=== PATIENT | female | born 1955 | race Caucasian/White ===

== ENCOUNTER 2020-08-21 13:38 | Inpatient (IN) | payer OTHER, SELFPAY ==
[~2020-08-21] VITALS: Ht 160 cm; Wt 73.2 kg
[2020-08-21 13:47] VITALS: Ht 160 cm; Wt 73.2 kg
--- NOTE | 2020-08-21 14:05 | NUR ---
PT BIB [facility] C/O SOB X 2 DAYS. PT STS "I TESTED + FOR COVID 1 WEEK AGO. SOB WROSE THE LAST 2 DAYS." PT AA/OX4. RESP EVEN AND UNLABORED. PT SPEAKING FULL, CLEAR AND COMPLETE SENTENCES. PT PLACED IN GOWN AND ON FULL CM. PT O2 SAT 88%RA. PT PLACED ON 4L O2 VIA NC. IV PLACED IN RAC. WILL CONT TO MONITOR
[2020-08-21 14:54] LABS: BASOPHIL % 0.1 % (0-2); PLATELET COUNT 192 x10^3mcL (130-400); RED CELL DISTRIBUTION WIDTH 14.4 % (11.5-14.5)
[2020-08-21 14:59] LABS: CALCIUM 8.9 mg/dL (8.5-10.1); CARBON DIOXIDE 22.6 mmol/L (21-32); CHLORIDE SERUM 94 mmol/L (98-107); CREATININE SERUM 0.7 mg/dL (0.6-1.0); GFR1 > 60 mL/min; GLUCOSE SERUM 90 mg/dL (74-106); POTASSIUM SERUM 3.6 mmol/L (3.5-5.1); SODIUM SERUM 131 mmol/L (136-145)
[2020-08-21 15:09] LABS: ALKALINE PHOSPHATASE 79 U/L (46-116); ALT/SGPT 20 U/L (14-59); AST/SGOT 39 U/L (15-37); BILIRUBIN TOTAL 0.4 mg/dL (0.20-1.00); LACTIC DEHYDROGENASE (LDH) 563 U/L (100-190); TOTAL PROTEIN, SERUM 7.7 g/dL (6.4-8.2)
[2020-08-21 15:11] LABS: ALBUMIN 3.1 g/dL (3.4-5.0)
[2020-08-21 15:23] LABS: C REACTIVE PROTEIN 44.4 mg/dL (<=0.9)
[2020-08-21] MEDS ORDERED: PAXIL10 MG/5 ML PO (15:59)
[2020-08-21] MEDS ORDERED: LEVOTHYROXINE (16:01)
[2020-08-21] MEDS ORDERED: BUPROPION300 M1 PO (16:01)
--- NOTE | 2020-08-21 17:14 | NUR ---
REPORT CALLED TO CESILIA LANDA TO ASSUME CARE OF PT.
--- NOTE | 2020-08-21 17:48 | NUR ---
RECEIVED PATIENT FROM ER LAYING IN BED, HOB ELEVATED MILD RESP DISTRESS NOTED, INTRODUCE MYSELF TO PT, SOB AND LABORED BREATHING NOTED, OBSERVED RR 32 BREATHS/MIN USING ABDOMINAL CAVITY. PT ANSWER QUESTIONS W/O TAKING A BREATHER. DENIED PAIN AT THIS TIME. CESILIA RN AT BEDSIDE CONNECT IV TO PUMP TO INFUSING ABX CAME WITH PT. IV SITE RAC INTACT/PATENT, FLUSH FREELY NO INFILTRATION NOTED. PLACE T51 ST WITH HR 113 NOTED. DISCUSS POC WITH PATIENT, CESILIA RN RESUME CARE. CALL LIGHT WITHIN REACH.
[2020-08-21 17:56] VITALS: BP 147/86
--- NOTE | 2020-08-21 18:27 | NUR ---
SPOKE WITH DR. BLISS VIA TELEPHONE, OBTAINED ORDER FOR CONTINUOUS PULSE OX AND ALBUTEROL INH. WILL INPUT ORDERS ACCORDINGLY. PT AMBULATED TO BR, GEN WEAKNESS NOTED. TELE#51 SR, BREATHING EVEN/LABORED ON 4 L NC. PT REPORTS NO PAIN AT THIS TIME. IV TO RAC PATENT, INFUSING AZITHROMYCIN AT 125ML/HR. ALL NEEDS MET. WILL ENDORSE CARE TO ANODISER NURSE.
--- NOTE | 2020-08-21 19:50 | NUR ---
RECEIVED PT IN BED RESTING AWAKE A/O X 4 ABLE TO FOLLOW COMMANDS, ABLE TO MAKE NEEDS KNOWN, SPEECH CLR, NO ZHANG OR DIZZINESS. LUNGS SOUND DIMINISHED BILATERALLY, RESP IS EVEN AND SLIGHTLY LABORED, SOB ON EXERTION OBSERVED, PT ON 4L OXYMIZER WITH SPO2 96%. RADIAL AND PEDAL PULSES PRESENT, NO EDEMA NOTED. ON TELE 51, NO C/O CHEST PAIN AT THIS TIME. ABD ROUND AND SOFT, ACTIVE BS PRESENT X4, 0% DINNER PER PT SHE HAS NO APPETITE, NO C/O NVD. VOID FREELY NO DISCOMFORT OR PAIN REPORTED. SKIN IS WARM AND DRY, IV SITE TO THE RAC, PATENT AND FLUSHING WELL. BED TO LOWEST POSITION, CALL LIG WITHIN REACH, WILL CONT TO MONITOR FOR CHANGES IN CONDTION.
[2020-08-21 22:58] VITALS: BP 121/61
[2020-08-22 06:17] VITALS: BP 125/78
--- NOTE | 2020-08-22 06:41 | NUR ---
PT REMAINED IN BED AWAKE RESTING COMFORTABLY. NO C/O PAIN, NO ACUTE DISTRESS NOTED. RESP IS EVEN AND SLIGHTLY LABORED, SOB UPON EXERTION OBSERVED, PT ON 4L OXYMIZER SPO2 96%. NEEDS ATTENDED AND MET, FREQUENT VISUAL MONITORING RENDERED. BED TO LOWEST POSITION, CALL LIGHT WITHIN REACH, WILL CONT TO MONITOR AND ENDORSE TO NEXT SHIFT NURSE.
[2020-08-22 06:51] LABS: PLATELET COUNT 213 x10^3mcL (130-400); RED CELL DISTRIBUTION WIDTH 14.4 % (11.5-14.5)
--- NOTE | 2020-08-22 07:25 | NUR ---
RECEIVED PT FROM LINUX SYSTEMS ENGINEER. ASSESSED AND WILL DOCUMENT. STABLE. DENIES ANY PAIN. NO SOB NOTED. SAFTEY PRECAUTIONS ARE IN PLACE. WILL MONITOR.
[2020-08-22 07:39] LABS: ALKALINE PHOSPHATASE 87 U/L (46-116); ALT/SGPT 29 U/L (14-59); AST/SGOT 44 U/L (15-37); BILIRUBIN TOTAL 0.39 mg/dL (0.20-1.00); CALCIUM 9.3 mg/dL (8.5-10.1); CARBON DIOXIDE 21.6 mmol/L (21-32); CHLORIDE SERUM 101 mmol/L (98-107); CREATININE SERUM 0.7 mg/dL (0.6-1.0); GFR1 > 60 mL/min; GLUCOSE SERUM 105 mg/dL (74-106); POTASSIUM SERUM 4.6 mmol/L (3.5-5.1); SODIUM SERUM 136 mmol/L (136-145); TOTAL PROTEIN, SERUM 7.8 g/dL (6.4-8.2)
[2020-08-22 07:40] LABS: ALBUMIN 2.7 g/dL (3.4-5.0)
[2020-08-22 08:05] LABS: BASOPHIL % 0 % (0-2)
[2020-08-22 08:56] VITALS: BP 153/85
[2020-08-22] MEDS ORDERED: PLAQUENIL200 MG PO (10:39)
--- NOTE | 2020-08-22 12:40 | NUR ---
PT GOT UP TO USE RESTROOM, TOOK O2 OFF. DESATTING TO 86% AND HR IS >140, DENIES CHEST PAIN. MILD SOB ON EXERTION. INSTRUCTED PT TO USE BSC BUT PT INSISTING SHE WANT TO USE THE RESTROOM, SHE SAID SHE IS FINE. STAYED WITH PT UNTIL SHE CAME BACK TO BED. PUT O2 BACK ON 4L OXYMIZER. GAVE COMFORTABLE POSITION. WILL CONTINUE MONITOR.
[2020-08-22 13:01] VITALS: BP 140/86
--- NOTE | 2020-08-22 13:15 | NUR ---
PT RESTING IN BED COMFORTABLY. NO SOB NOTED. 96% IN 4L O2 OXYMIZER. HR 101. DENIES ANY PAIN. PT C/O SORE THROAT, INFORMED , HE SAID TO ORDER THROAT LOZENGELS. PT IS STABLE. WILL CONTINUE MONITOR.
--- NOTE | 2020-08-22 16:00 | NUR ---
PT RESTING IN BED COMFORTABLY, NO SOB NOTED THIS TIME. STABLE.
[2020-08-22 17:02] VITALS: BP 142/94
--- NOTE | 2020-08-22 19:11 | NUR ---
PT REMAINS STABLE. SOB ON EXERTION NOTED. SPO2 96% ON OXIMIZER 4L. INFORMED RT TO GIVE BREATHING TX. PT C/O ACID REFLUX. CALLED AND RECEIVED ORDER FOR PRILOSEC PO ACBK.GAVE REPORT TO PLASTER TENDER NURSE.
[2020-08-22 19:48] VITALS: BP 158/87
--- NOTE | 2020-08-22 19:55 | NUR ---
RECEIVED PT STANDING BY THE BED. SHE IS ALERT,ORIENTED X4. LUNG SOUNDS DIM. ON OXIMIZER AT 4L . PT W/ MILD SOB ON EXERTION. SHE HAS NO C/O PAIN AT THIS TIME. W/ IV ABX INFUSING VIA RTAC. CALL LIGHT W/IN REACH.
[2020-08-23] VITALS (9 sets, daily range): BP systolic 113–149; BP diastolic 65–113
--- NOTE | 2020-08-23 06:26 | NUR ---
PT SLEPT IN LONG INTERVALS. PT REMAINS ON O2 AT 4L VIA OXIMIZER. SHE HAS MILD SOB ON EXERTION. SHE IS ABLE TO AMBULATE INDEPENDENTLY. PT SIGNED CONSENT FOR CONVALESCENT PLASMA TRANSFUSION. SHE WAS MEDICATED FOR HEADACHE X1. ALL NEEDS ATTENDED TO.
--- NOTE | 2020-08-23 07:30 | NUR ---
RECEIVED PT FROM RN PEDIATRIC ICU. ASSESSED AND WILL DOCUMENT. NO SOB THIS TIME. SOB ON EXERTION. DENIES ANY PAIN. SAFTEY PRECAUTIONS ARE IN PLACE. WILL MONITOR.
[2020-08-23 08:10] LABS: ALKALINE PHOSPHATASE 100 U/L (46-116); ALT/SGPT 38 U/L (14-59); AST/SGOT 42 U/L (15-37); BILIRUBIN TOTAL 0.28 mg/dL (0.20-1.00); CARBON DIOXIDE 24.9 mmol/L (21-32); CHLORIDE SERUM 101 mmol/L (98-107); CREATININE SERUM 0.6 mg/dL (0.6-1.0); GFR1 > 60 mL/min; GLUCOSE SERUM 120 mg/dL (74-106); POTASSIUM SERUM 3.6 mmol/L (3.5-5.1); SODIUM SERUM 136 mmol/L (136-145); TOTAL PROTEIN, SERUM 7.4 g/dL (6.4-8.2)
[2020-08-23 08:12] LABS: ALBUMIN 2.6 g/dL (3.4-5.0)
[2020-08-23 08:19] LABS: BASOPHIL % 0 % (0-2); PLATELET COUNT 258 x10^3mcL (130-400); RED CELL DISTRIBUTION WIDTH 14.4 % (11.5-14.5)
--- NOTE | 2020-08-23 08:40 | NUR ---
PT GOT UP TO USE RESTROOM, HR UP TO 140, MILD SOB ON EXERTION, SPO2 95%. ASSISTED PT BACK TO BED SAFLEY, HR BACK TO NORMAL IN 90'S. STABLE. WILL CONTINUE MONITOR.
--- NOTE | 2020-08-23 09:50 | NUR ---
PT C/O ZHANG AND BACK PAIN,12/05. ADMINISTERED TYLENOL PO ORDERED. WILL MONITOR. NO SOB NOTED.
--- NOTE | 2020-08-23 10:50 | NUR ---
DENIES ZHANG AND BACK PAIN THIS TIME. STABLE.
--- NOTE | 2020-08-23 11:00 | NUR ---
POOR APPETITE, ENCOURAGED PT TO EAT. PT AGREED TO EAT LITTILE MORE. STABLE. NO SOB NOTED.
--- NOTE | 2020-08-23 14:00 | NUR ---
PT IS SLEEPING THIS TIME. STABLE. NO SOB NOTED.
--- NOTE | 2020-08-23 18:10 | NUR ---
PT C/O ZHANG AND BACK PAIN,12/05. ADMINISTERED TYLENOL PO ORDERED. WILL MONITOR. NO SOB NOTED.
--- NOTE | 2020-08-23 19:10 | NUR ---
PT REMAINS STABLE. DENIES ZHANG AND BACK PAIN THIS TIME. NO SOB NOTED. GAVE REPORT TO FLIGHT ATTENDANT INFLIGHT SERVICES NURSE.
--- NOTE | 2020-08-23 19:20 | NUR ---
RECEIVED PT FROM DAY SHIFT RN.PT RESTING IN BED. PT AA&OX4. PT ON TELE#51, ST 108, DENIES CHEST PAIN OR DISTRESS. PT ON 4L O2 W/OXIMIZER. LUNG SOUNDS DIMINISHED BILATERAL. NO EDEMA NOTED, PULSES REGULAR. GENERALIZED WEAKNESS NOTED. IV SITE INTACT AND PATENT, IV FLUID RUNNING WELL. PT STATES SHE FEEL MUCH BETTER NOW AFTER THE PAIN MEDICATION GIVEN. INSTRUCTED PT TO USE CALL LIGHT AND PHONE, BED IN LOW POSITION. WILL CONTINUE TO CALL PT.
--- NOTE | 2020-08-23 23:00 | NUR ---
2210: VERIFIED TRANSFUSION WITH ANOTHER NURSE. STARTING TO GIVE TRANSFUSTION. VITAL SIGNS :T=97.9,HR=91,DI=865/65, RR=20, Q6CSE=74%. STARTING WITH RATE W/60ML/HR. BEDSIDE MONITORING. 2225: VITAL SIGNS: T=97.1, HR=80, WQ=374/83, RR=19, L4JKG=12%. NO ADVERSE REACTION NOTED AT THIS TIME. INFUSING WELL AND PT TOLERATED WELL. IV TRANSFUSION INFUSING RATE CHAGE TO 250ML/HR. 2255: VITAL SIGNS: T=97.1, HR=84, FI=631/83, RR=19, T6PNC=48%. BLOOD CONVALESCENT PLAME TRANSFUTION DONE. NO ADVERSE REACTION NOTED. PT TOLERATED WELL. NO DISTRESS NOTED. NO CHEST PAIN. PT ON OXYGEN 4L W/OXIMIZER. INSTRUCTED PT TO CALL FOR ANY ASSISTANCE OR ANY ACUTE CHANGE WITH CONDITIONS. WILL CONTINUE TO MONITOR PT.
--- NOTE | 2020-08-24 01:00 | NUR ---
RECHECKED ON PT. PT RESTING IN BED. ON O2 4L/OXIMIZER. NO S/S OF DISTRESS NOTED. WILL CONTINUE TO MONITOR PT.
[2020-08-24 05:22] VITALS: BP 120/67
[2020-08-24 06:48] LABS: PLATELET COUNT 255 x10^3mcL (130-400); RED CELL DISTRIBUTION WIDTH 14.3 % (11.5-14.5)
--- NOTE | 2020-08-24 06:57 | NUR ---
PT RESTING WELL DURING SHIFT. NO S/S OF ACUTE CHANGES NOTED. PT DENIES CHEST PAIN OR DISCOMFORT. PT ON 4 L O2 W/OXIMIZER. CALL LIGHT WITHIN REACH, BED IN LOW POSITION. WILL ENDORSE CARE TO DAY SHIFT RN.
[2020-08-24 07:10] LABS: BASOPHIL % 0 % (0-2)
[2020-08-24 07:25] LABS: ALKALINE PHOSPHATASE 81 U/L (46-116); ALT/SGPT 38 U/L (14-59); AST/SGOT 39 U/L (15-37); BILIRUBIN TOTAL 0.3 mg/dL (0.20-1.00); CARBON DIOXIDE 28.3 mmol/L (21-32); CHLORIDE SERUM 100 mmol/L (98-107); CREATININE SERUM 0.7 mg/dL (0.6-1.0); GFR1 > 60 mL/min; GLUCOSE SERUM 83 mg/dL (74-106); POTASSIUM SERUM 3.6 mmol/L (3.5-5.1); SODIUM SERUM 136 mmol/L (136-145); TOTAL PROTEIN, SERUM 6.9 g/dL (6.4-8.2)
[2020-08-24 07:39] LABS: ALBUMIN 2.6 g/dL (3.4-5.0)
--- NOTE | 2020-08-24 08:00 | NUR ---
RECEIVED PT IN BED A/A/OX4 DENIES ZHANG, RESP EVEN AND UNLABORED, BECOMES LABORED WHILE SPEAKING OF PERFORMING ACTIVITY. ON O2 VIA OXYMIZER AT 5L/MIN VIA OXYMIZER WITH O2SAT 88%, INCREASE O2 TO 8L/MIN AT THIS TIME. WITH SAT INCREASING TO 95%. DIMINISHED BASES AND FREQUENT DRY COUGH. PT REPORTS INCREASED SOB WITH ACTIVITY. CURRENTLY TOLERATING AMBULATING TO BR WITH O2 EXTENSION TUBING. DENIES ANY CP/PRESSURE AT THIS TIME. ABD SOFT, NONTENDER WITH ACTIVE BS X4. DENIES ANY N/V. WITH LOSE OF SMELL AND TASTE WITH FAIR APPETITE. VOIDING FREELY AND AMBULATORY. CALL LIGHT IN REACH NEEDS ATTENDED TO.
[2020-08-24 08:25] VITALS: BP 119/66
[2020-08-24 12:11] VITALS: BP 130/70
[2020-08-24 16:43] VITALS: BP 111/80
--- NOTE | 2020-08-24 18:16 | NUR ---
PT RESTING AT THIS TIME. C/O BACK PAIN X2 MEDICATED WITH NORCO. DENIES ANY N/V. REMAINS ON O2 AT 6L/MIN VIA OXYMIZER. TOLERATING ACTIVITY. CALL LIGHT IN REACH NEEDS ATTENDED TO AND ANTICIPATED.
--- NOTE | 2020-08-24 19:10 | NUR ---
RECEIVED PATIENT FROM DAY SHIFT NURSE. PATIENT IN NO ACUTE DISTRESS. AWAKE, ALERT AND ORIENTED X4. TELE #[address] HR 84. EVEN AND UNLABORED BREATHING ON 6L OXYMIZER. SOB NOTED WHILE SPEAKING. PATIENT WITH HOB ELEVATED. ENCOURAGED TO LAY PRONE AND USE IS. O2 EXTENSION IN PLACE IF NEEDED TO GET OUT OF BED. DENIES PAIN AT THIS TIME. NO C/O CHEST PAIN/CHEST PRESSURE. IV WNL. DRY COUGH NOTED. AMBULATORY AND ABLE TO VOID FREELY. CONTINUE TO C/O LOSS OF TASTE AND SMELL. BED IN LOWEST POSTITION. CALL LIGHT WITHIN REACH, SIDE RAILS UPX2.
[2020-08-24 20:15] VITALS: BP 129/78
--- NOTE | 2020-08-25 00:40 | NUR ---
PATIENT SLEEPING AT THIS TIME, NO ACUTE DISTRESS. EU BREATHING NOTED ON 12 L OXYMIZER. NO S/S OF SOB AT THIS TIME. TELE #[address]
[2020-08-25 04:12] VITALS: BP 124/71
--- NOTE | 2020-08-25 07:20 | NUR ---
PATIENT PROVIDED WITH BEDSIDE COMMODE. WHEN PATIENT AMBULATED SHE KEPT DESATING. PATIENT C/O SOB AND COUGH. MEDICATED WITH COUGH MEDICATIO PER NOV. REASSESSED PER RT AND PLACED ON NON REBREATHER MASK. SPO2 NOW AT 99%. CARE ENDORSE CARE TO DAY SHIFT NURSE.
[2020-08-25 07:25] LABS: BASOPHIL % 0.1 % (0-2); PLATELET COUNT 291 x10^3mcL (130-400); RED CELL DISTRIBUTION WIDTH 13.7 % (11.5-14.5)
[2020-08-25 07:50] LABS: ALKALINE PHOSPHATASE 81 U/L (46-116); ALT/SGPT 39 U/L (14-59); AST/SGOT 37 U/L (15-37); BILIRUBIN TOTAL 0.27 mg/dL (0.20-1.00); CALCIUM 9.2 mg/dL (8.5-10.1); CARBON DIOXIDE 29.9 mmol/L (21-32); CHLORIDE SERUM 100 mmol/L (98-107); CREATININE SERUM 0.6 mg/dL (0.6-1.0); GFR1 > 60 mL/min; GLUCOSE SERUM 88 mg/dL (74-106); POTASSIUM SERUM 4.1 mmol/L (3.5-5.1); SODIUM SERUM 138 mmol/L (136-145); TOTAL PROTEIN, SERUM 7.2 g/dL (6.4-8.2)
[2020-08-25 07:56] LABS: ALBUMIN 2.6 g/dL (3.4-5.0)
--- NOTE | 2020-08-25 08:18 | NUR ---
PATIENT IS AOX4, SINUS RHYTHM ON 15L NONREBREATHER MASK. REPORTS FEELING LESS SHORT OF BREATH FROM THIS MORNING. DENIES CHEST PAIN. ENCOURAGED PATIENT TO LIMIT ACTIVITY AND PERFORM DEEP BREATHING EXERCISES. PT VERABLIZED UNDERSTANDING. COMMODE AT BEDSIDE, LAST BM 08/24. UPDATED PT ON PLAN OF CARE. WILL CONTINUE TO MONITOR.
[2020-08-25 09:04] VITALS: BP 113/71
[2020-08-25 12:21] VITALS: BP 109/70
[2020-08-25 16:07] VITALS: BP 127/74
--- NOTE | 2020-08-25 18:08 | NUR ---
PATIENT IS ON 10L OXYMIZER SPO2 97%. DENIES SHORTNESS OF BREATH AT REST. REPORTS INTERMITTENT COUGH. TOLERATING DIET WELL WITH NO N/V. UDPDATED PT ON PLAN OF CARE. WILL ENDORSE TO NIGHT RN.
--- NOTE | 2020-08-25 19:15 | NUR ---
RECEIVED PATIENT FROM DAY SHIFT NURSE. PATIENT IN NO ACUTE DISTRESS AT THIS TIME. AWAKE, ALERT AND ORIENTED X4. PATIENT STATES SHE FEELS BETTER THAN SHE DID LAST NIGHT. EU BREATHING NOTED ON 10L OXYMIZER AT THSI TIME. DENIES SOB, HOB ELEVATED. SR ON TELE. COMMODE AT BEDSIDE, STATES SHE FEELS BETTER HAVING COMMODE NEAR HER DUE TO SOB WHEN SHE AMBULATES. ABLE TO COMPLETE A SENTENCE WITHOUT S/S OF SOB. NO C/O N/V. IV WNL, SALINE LOCK. BED IN LOWEST POSITION. CALL LIGHT WITHIN REACH. SIDE RAILS UP X2.
[2020-08-25 21:17] VITALS: BP 128/61
--- NOTE | 2020-08-26 00:20 | NUR ---
SLEEPING AT THIS TIME, NO ACUTE DISTRESS. EU BREATHING NOTED ON 10L OXYMIZER. NO C/O SOB AT THIS TIME. NSR ON TELE. COMMODE AT BEDSIDE. BED IN LOWEST POSITION. CALL LIGHT WITHIN REACH. SIDE RAILS UP X2.
[2020-08-26 05:52] VITALS: BP 143/81
[2020-08-26 07:30] LABS: ALKALINE PHOSPHATASE 78 U/L (46-116); ALT/SGPT 37 U/L (14-59); AST/SGOT 40 U/L (15-37); BILIRUBIN TOTAL 0.3 mg/dL (0.20-1.00); CALCIUM 8.9 mg/dL (8.5-10.1); CARBON DIOXIDE 26.7 mmol/L (21-32); CHLORIDE SERUM 95 mmol/L (98-107); CREATININE SERUM 0.7 mg/dL (0.6-1.0); GFR1 > 60 mL/min; GLUCOSE SERUM 110 mg/dL (74-106); POTASSIUM SERUM 3.7 mmol/L (3.5-5.1); SODIUM SERUM 133 mmol/L (136-145); TOTAL PROTEIN, SERUM 7.4 g/dL (6.4-8.2)
--- NOTE | 2020-08-26 07:30 | NUR ---
PT. RECEIVED IN BED ASLEEP BUT AWAKEN TO VOICE.NO ACUTE SOB NOTED @ REST BUT PAGE WITH MILD ACTIVITY.CARE ASSURED.NO ACUTE DISTRESS NOTED.NSR ON THE MONITOR.ACTIVE BOWELS.SKIN WARM AND DRY TO TOUCH.VSS.AFEBRILE.NEEDS ARE BEING MET.BED IN LOW SAFE POSITION. CALL LIGHT WITHIN REACH.
[2020-08-26 07:31] LABS: ALBUMIN 2.6 g/dL (3.4-5.0)
[2020-08-26 07:38] LABS: PLATELET COUNT 369 x10^3mcL (130-400); RED CELL DISTRIBUTION WIDTH 13.4 % (11.5-14.5)
[2020-08-26 07:41] LABS: BASOPHIL % 0 % (0-2)
[2020-08-26 08:29] VITALS: BP 112/73
[2020-08-26 12:19] VITALS: BP 121/74
--- NOTE | 2020-08-26 13:30 | NUR ---
PT RESTING QUIETLY IN BED.DESATURATION RESOLVED WITH O2 TITRATION FROM OXYMASK 11L TO NRM @ 15L,SATTING 96%.CLOSE MONITORING OF O2 STATUS IN PROGRESS.ALL OTHER NEEDS ARE BEING MET.B/P STABLE.AFEBRILE.NEEDS ARE BEING MET.CALL LIGHT WITHIN REACH.
[2020-08-26 16:10] VITALS: BP 129/84
--- NOTE | 2020-08-26 19:15 | NUR ---
RECEIVED PATIENT FROM DAY SHIFT NURSE, NO ACUTE DISTRESS. AWAKE, ALERT AND ORIENTED X4. EU BREATHING NOTED ON 15L NON REBREATHER, DENIES ANY SOB. SITTING IN BED WITH HOB ELEVATED. NSR ON TELE. COMMODE AT BEDSIDE. DENIES ANY PAIN AT THIS TIME. DRY COUGH NOTED. ENCOURAGED TO LAY PRONE. BED IN LOWEST POSITION. CALL LIGHT WITHIN REACH. SIDE RAILS UP X2.
[2020-08-26 21:11] VITALS: BP 126/83
--- NOTE | 2020-08-27 03:43 | NUR ---
PATIENT SLEEPING AT THIS TIME, NO ACUTE DISTRESS AT THIS TIME. EU BREATHING NOTED ON 15L NON REBREATHER. NSR ON TELE. COMMODE AT BEDSIDE. CONT PULSE OX IN PLACE. BED IN LOWEST POSITION. CALL LIGHT WITHIN REACH SIDE RAILS UPX2. SPO2 98%. ALL SAFETY PROTOCOLS IN PLACE.
[2020-08-27 05:30] VITALS: BP 127/75
--- NOTE | 2020-08-27 06:58 | NUR ---
NO ACUTE DISTRESS. TOELRATED MEDICATIONS WELL. PROVIDED COUGH MEDICATION WITH AM MEDS PER EMAR. NSR ON TELE. EU BREATHING NOTED ON 15L NON REBREATHER. WILL CONTINUE TO MONITOR. WILL ENDORSE TO ONCOMING SHIFT NURSE.
--- NOTE | 2020-08-27 07:30 | NUR ---
PT. RECEIVED IN BED SITTING UP @ BEDSIDE.CARE ASSURED.NO ACUTE DISTRESS NOTED.PAGE ON MILD ACTIVITIES.CRACKLES @ BASES.O2 VIA NRM @ 15L, SATTING 92%.NSR ON THE MONITOR.ACTIVE BOWELS.VOIDS VIA BSC.SKIN WARM AND DRY TO TOUCH.AFEBRILE.VSS.CALL LIGHT WITHIN REACH.BED IN LOW SAFE POSITION.
[2020-08-27 08:02] LABS: BILIRUBIN DIRECT 0.17 mg/dL (0.0-0.2); BILIRUBIN TOTAL 0.3 mg/dL (0.20-1.00); TOTAL PROTEIN, SERUM 7.1 g/dL (6.4-8.2)
[2020-08-27 08:07] LABS: ALBUMIN 2.4 g/dL (3.4-5.0)
[2020-08-27 08:32] VITALS: BP 111/67
--- NOTE | 2020-08-27 15:39 | NUR ---
Initial Nutrition Assessment: LiloA AUGUSTO GARDNER 65F MR Dx: PNA, Hypoxia, COVID 19+ PMHx: Lupus, Chronic low back pain PSHx: none noted Labs: (08/27) AST 46H, albumin 2.4L, (08/26) WBC 13.2H, Hbg 11.6L, Na 133L, Cl 95L, BG 110H, (08/21) Ferritin 343.3H, CRP 44.4H Meds: Tessalon, Prilosec, Plaquenil, Lovenox, Remdesevir, Cepacol, Decadron, Wellbutrin-SR, Paxil, Tylenol, Zofran Diet: Regular PO intake since admission: (08/22) L: 40%, D: 30%, (08/23) B: 50%, L: 25%, (08/25) B: 0%, D: 70%, (08/26) B: 60%, L: 40%, D: 75%, (08/27) B: 75%; Av.67% Ht: 160.02cm/63in Wt: 73.198kg/161lbs BMI: 28.6kg/m2 Bed scale: not accessible IBW: 52.27kg/115lbs %IBW: 140% ABW: 58kg UBW: unknown Age: 65 Food Allergies: none noted Edema: none noted Last BM: 08/25 Skin: skin intact Anibal: 20 Per H and P (08/22), 65-year-old female of PMH of lupus diagnosed 2 years ago (on hydroxychloroquine and steroids), chronic low back pain presents to ER with 1 weeks of loss of smell and taste, dry cough, generalized weakness/fatigue, SOB. No fever, chills, N/V or diarrhea. She lives with her brothe and his family and somebody had tested positive. She herself tested positive last week. In ER, BP 137/69, HR 114, temp 100.6 F. She had O2 saturation 88% on RA with improvement to 95-96% on 5L O2 via NC. Labs: WBC 10, lactic acid 1.0, d-dimer 568. ABG pH 7.41, pCO2 28, pO2 86. SARS-CoV-2 detected. CXR showed bilateral pulm opacities. Patient received IV antibiotics and admitted. She is on O2 4 L Pt was admitted with dx: COVID PNA, Bilateranl PNA, Acute hypoxemic respiratory failure, Lupus, Chronic back pain RD Note (08/27/2020) RD tried to reach pt via bedside phone, but pt did not respond. Per progress note (08/26), pt on Oxymizer 10L, received convalescent plasma, remdesivir. Per RN reassessment note (08/27), pt appetite fair, active bowel sound, no GI distress noted. Per RN note (08/27), pt receives O2 via NRM at 15L saturating at 92%. Pt had average PO intake of 51.67%, and pt's diet approximately provided 1393kcal and 62.5g protein meeting 80% estimated kcal needs and 90.57% estimated protein needs; adequate. Problem with: N/V/D/C: none noted Problems with: Chewing: Swallowing: none noted Current appetite: "WNL" per RN note Recent wt change: unknown %wt change: unknown Vitamin/Supplement use: none noted in H and P (08/22) Special diet at home: unknown Physical activity: Regular diet and good intake per admission assessment. Nutrition education given (specify specific nutrition education and handout given): not provided at this time d/t pt in isolation and not responding to phone call. Food-drug interactions? Education given? n/a Estimated Nutritional Needs Based on adjusted body weight (58kg) Energy: 4673-0507 kcal/day (30-35 kcal/kg for viral infection) Protein: 69-87 g/day (1.2-1.5 g/kg for viral infection) Fluid: 4565-9682 mL/day (1 mL/kcal) Nutrition Diagnosis: 1. Increased energy and protein needs r/t viral infection a/e/b pt's admission diagnosis of COVID-19. Intervention 1. Continue regular diet 2. Recommend ensure enlive QD to provide 350kcal and 20g protein for high kcal and protein demand. Consider d/c ONS if pt PO intake meets > 75% of estimated needs upon follow up. Monitor/Evaluate Goal: PO intake at least 75% of estimated needs Monitor: PO intake, Labs, GI function, ONS intake F/U in 3-5 days as moderate risk 08/30-
[2020-08-27 16:30] VITALS: BP 136/84
--- NOTE | 2020-08-27 17:30 | NUR ---
PT. RESTING QUIETLY IN BED W/O ANY ACUTE DESATURATION,ON OXYMIZER @ 14L,SATTING 94%.NEEDS ARE BEING MET.REMDESEVIR DOSE COMPLETED TODAY.VSS.AFEBRILE.CALL LIGHT WITHIN REACH.BED IN LOW SAFE POSITION.
--- NOTE | 2020-08-27 20:30 | NUR ---
PT REPORT FROM DAY RN. NO S/S OF DISTRESS OR DISCOMFORT.PATIENT BREATHING EVEN ON 14L OXYMIZER. PATIENT AXOX4 AMBULATORY, USES BSC. LAC 20G TELE 51 NSR AT THIS TIME. ACTIVE BOWELS X4. NON TENDER ABD. SKIN INTACT. STRONG RADIAL AND PEDAL PULSES. VOIDS FREELY IN BSC. CALM AND COOPERATIVE WITH CARE. BEDIN LOW POSITION, SIDE RAILS UPX2, CALL LIGHT WITHIN REACH. WILL CONTINUE TO MONITOR PATIENT AND OFFER SUPPORT.
[2020-08-27 22:34] VITALS: BP 137/82
--- NOTE | 2020-08-28 00:56 | NUR ---
PATIENT BREATHING EVEN AND UNLABORED ON 14L OXYMIXER. 96% SPO2. NO S/S OF DISTRESS OR DISCOMFORT. AXOX4 ABLE TO EXPRESS HER NEEDS. WILL CONTINUE TO MONITOR PATIENT AND OFFER SUPPORT.
[2020-08-28 06:01] VITALS: BP 122/76
--- NOTE | 2020-08-28 06:09 | NUR ---
PATIENT GETTING UP TO USE THE BSC ON HER OWN. NO S/S OF DISTRESS. PATIENT ON 14L OXYMIZER AT THIS TIME. PATIENT DOES GET SOB WITH EXERTION. NO REPORTS FROM TELE.
--- NOTE | 2020-08-28 07:30 | NUR ---
PT. RECEIVED IN BED ALERT AND ORIENTED*4,DOSING IN AND OUT OF SLEEP.CARE ASSURED.COVID ISOLATION CONTINUES.O2 VIA OXYMIZER @ 11L,SATTING 93%.NO ACUTE SOB @ REST BUT PAGE ON MILD EXERTION.LUNGS ARE DIMINISHED @ UPPER AND CRACKLES @ BASES.NSR ON THE MONITOR.SKIN WARM AND DRY TO TOUCH.VSS.AFEBRILE.VOIDS VIA BRP/BSC.CALL LIGHT AT REACH.
[2020-08-28 07:42] LABS: ALKALINE PHOSPHATASE 76 U/L (46-116); ALT/SGPT 42 U/L (14-59); AST/SGOT 35 U/L (15-37); BILIRUBIN DIRECT 0.17 mg/dL (0.0-0.2); BILIRUBIN TOTAL 0.4 mg/dL (0.20-1.00); CALCIUM 8.6 mg/dL (8.5-10.1); CARBON DIOXIDE 26.6 mmol/L (21-32); CHLORIDE SERUM 96 mmol/L (98-107); CREATININE SERUM 0.6 mg/dL (0.6-1.0); GFR1 > 60 mL/min; GLUCOSE SERUM 98 mg/dL (74-106); POTASSIUM SERUM 3.8 mmol/L (3.5-5.1); SODIUM SERUM 134 mmol/L (136-145); TOTAL PROTEIN, SERUM 7.1 g/dL (6.4-8.2)
[2020-08-28 07:45] LABS: ALBUMIN 2.4 g/dL (3.4-5.0)
[2020-08-28 08:38] VITALS: BP 122/68
[2020-08-28 09:13] LABS: BASOPHIL % 0.1 % (0-2); RED CELL DISTRIBUTION WIDTH 13.4 % (11.5-14.5)
[2020-08-28 11:58] VITALS: BP 101/57
[2020-08-28 12:13] LABS: PLATELET COUNT 413 x10^3mcL (130-400)
[2020-08-28 16:17] VITALS: BP 125/83
--- NOTE | 2020-08-28 19:30 | NUR ---
RECEIVED PT FROM DAY SHIFT NURSE, PT IS RESTING IN BED AWAKE AND ALERT A&OX4. TELE 51, NSR. NO C/O CP, DIZZINESS, ZHANG, N/V OR PALPITATIONS. PALPABLE PULSES, NO EDEMA NOTED. BREATHING IS EVEN AND UL ON 11L NRB AND OXIMIZER, LUNG SOUNDS DIMINISHED BILATERAL BASES. NO SOB OR ACUTE RESPIRATORY DISTRESS NOTED. BOWEL SOUNDS ACTIVE X4, ABD IS SOFT AND ROUND. GENERALIZED WEAKNESS NOTED, AMBULATORY AT BASELINE. SKIN IS INTACT. IV TO LAC, CDI AND PATENT, FLUSHING WELL NO ERYTHEMA NOTED. NO C/O PAIN OR DISCOMFORT AT THIS TIME. BED IN LOWEST POSITION. CALL LIGHT IS W/IN REACH. WILL CONTINUE TO MONITOR.
[2020-08-28 22:10] VITALS: BP 144/80
--- NOTE | 2020-08-29 00:07 | NUR ---
PT IS RESTING IN BED AWAKE AND ALERT. BREATHING IS EVEN AND UL ON 11L NRB AND OXIMIZER, NO SOB NOTED. NO C/O PAIN OR DISCOMFORT AT THIS TIME. REMAINS IN STABLE CONDITION. BED IN LOWEST POSITION. CALL LIGHT IS W/IN REACH. WILL CONTINUE TO MONITOR.
[2020-08-29 06:08] VITALS: BP 127/94
--- NOTE | 2020-08-29 06:16 | NUR ---
PT IS RESTING IN BED AWAKE AND ALERT. BREATHING IS EVEN AND UL ON 11L OXYMIZER, NO SOB NOTED. NO C/O PAIN OR DISCOMFORT THROUGHOUT SHIFT. VSS. REMAINS IN STABLE CONDITION. NO SIGNIFICANT CHANGES AT THIS TIME. CALM AND COOPERATIVE WITH CARE. BED IN LOWEST POSITION. CALL LIGHT IS W/IN REACH. WILL ENDORSE TO DAY SHIFT NURSE.
--- NOTE | 2020-08-29 07:45 | NUR ---
RECEIVED PT FROM PM NURSE. PT IS AWAKE AND IN NO ACUTE DISTRESS AT THE TIME. PT IS A/OX4. ABLE TO MAKE NEEDS KNOWN. DENIES ZHANG/DIZZINESS. LUNG SOUNDS DIMINISHED. BREATHING E/U ON 11L OXYMIZER. TELE #51. DENIES CP/PRESSURE. PULSES EVEN AND PALPABLE. NO EDEMA NOTED. ACTIVE BSX4. ABD SOFT AND NON DISTENDED. VOIDS FREELY. GENERALIZED WEAKNESS NOTED. SKIN INTACT. NO C/O PAIN AT THIS TIME. IV 20G TO LAC. SL. FLUSHES WITH NO DIFFICULTY. BED AT LOWEST POSITION. CONTACT/DROPLET PRECAUTION IN PLACE. CALL BUTTON WITHIN REACH. WILL CONTINUE TO MONITOR.
[2020-08-29 08:15] VITALS: BP 127/76
[2020-08-29 13:14] VITALS: BP 126/73
[2020-08-29 16:04] VITALS: BP 171/79
--- NOTE | 2020-08-29 17:40 | NUR ---
PAGED DR SALINAS ABOUT PT WANTING A MEDICATION THAT COULD HELP HER WITH HER STRESS INCONTIENCE. PT SAID THAT EVERYTIME SHE COUGHS, SHE WOULD HAVE THE NEED TO VOID RIGHT AWAY. PT STATED THAT SHE WAS TAKING A MEDICATION FOR IT PRIOR TO HOSPITALIZATION BUT FORGOT THE NAME. AWAITING CALL BACK FROM DR SALINAS AT THIS TIME.
--- NOTE | 2020-08-29 17:52 | NUR ---
DR SALINAS CALLED BACK WITH NNO AT THIS TIME.
--- NOTE | 2020-08-29 18:16 | NUR ---
NO ACUTE DISTRESS NOTED DURING SHIFT. WILL ENDORSE CARE TO PM SHIFT FOR CONTINUITY OF CARE.
--- NOTE | 2020-08-29 19:16 | NUR ---
RECIEVED PT FROM AM RN. CALLED INTO PTS ROOM, PT OKAY AWARE OF CHANGE OF SHIFT. HAS NO CONCERNS AT THIS TIME. ENCOURAGED TO USE CALL LIGHT IF ASSISTANCE IS NEEDED. WILL FOLLOW UP WITH ASSESSMENT.
[2020-08-29 21:15] VITALS: BP 132/80
--- NOTE | 2020-08-29 22:11 | NUR ---
PT TOLERATED PM MEDS WELL. PT HAS NO CONCERNS AT THIS TIME. WILL CONTINUE TO MONITOR. PT HAS CALL LIGHT IN REACH, ENCOURAGED TO USE IF ASSISTANCE IS NEEDED.
--- NOTE | 2020-08-30 04:24 | NUR ---
PT RESTING, STILL ON 11L OXM, NO CONCERNS AT THIS TIME. CALL LIGHT IN REACH. WILL CONTINUE TO MONITOR.
--- NOTE | 2020-08-30 05:29 | NUR ---
PT USED BEDSIDE COMMODE, HR INCREASED TO 135 O2 SAT AT 72%. PT NOW IN BED SITTING BUT O2 SAT STILL AT 79%. PT ENCOURAGED TO DEEP BREATHE. PT IS ON 12L OXM. RT CALLED WILL COME UP TO PROVIDE TX AND ASSESS.
[2020-08-30 05:47] VITALS: BP 107/70
--- NOTE | 2020-08-30 05:59 | NUR ---
RT CAME TO SEE PT, PUT PT ON 15L NRB. PT SATTING AT 93%. ALSO ADMINISTERED TESSALON PERLES TO HELP WITH COUGHING. PT ENCOURAGED TO CONTINUE TO USE IS AND TO LIE PRONE TOLERATED, VERBALIZED UNDERSTANDING. CALL LIGHT IN REACH, ENCOURAGED TO USE IF ASSISTANCE IS NEEDED. OTHERWISE, PT WAS STABLE THROUGHOUT THE NIGHT, NO OTHER CONCERNS AT THIS TIME. WILL ENDORSE ALL CARE TO AM RN. WILL CONTINUE TO MONITOR.
--- NOTE | 2020-08-30 07:16 | NUR ---
RECEIVED PT FROM PM NURSE. PT IS AWAKE AND RESTING COMFORTABLY AT THIS TIME. NO FACIAL DISTRESS OR SOB NOTED. PT IS A/OX4. ABLE TO MAKE NEEDS KNOWN. DENIES ZHANG/DIZZINESS. LUNG SOUNDS DIMINISHED. BREATHING E/U ON 15L NRB. TELE #51. DENIES CHEST PAIN. PULSES EVEN AND PALPABLE. NO EDEMA NOTED. ACTIVE BSX4. ABD SOFT AND NON DISTENDED. DENIES N/V/D. VOIDS FREELY. BSC BY BEDSIDE. GENERALIZED WEAKNESS NOTED. SKIN INTACT. NO C/O PAIN AT THIS TIME. IV 20G TO LAC. SL. BED AT LOWEST POSITION. CONTACT/DROPLET PRECAUTON OBSERVED AT ALL TIMES. CALL BUTTON WITHIN REACH. WILL CONTINUE TO MONITOR.
[2020-08-30 07:19] LABS: CARBON DIOXIDE 27.5 mmol/L (21-32); CHLORIDE SERUM 97 mmol/L (98-107); CREATININE SERUM 0.8 mg/dL (0.6-1.0); GFR1 > 60 mL/min; GLUCOSE SERUM 110 mg/dL (74-106); POTASSIUM SERUM 3.5 mmol/L (3.5-5.1); SODIUM SERUM 135 mmol/L (136-145)
[2020-08-30 07:26] LABS: BASOPHIL % 0 % (0-2); PLATELET COUNT 472 x10^3mcL (130-400); RED CELL DISTRIBUTION WIDTH 14.7 % (11.5-14.5)
[2020-08-30 08:44] VITALS: BP 125/73
--- NOTE | 2020-08-30 10:30 | NUR ---
SPOKE TO DR FITZGERALD ABOUT PATIENT WANTING TO RESUME ONE OF HER HOME MEDS (OXYBUTYNIN) D/T PATIENT C/O STRESS INCONTIENCE EVERYTIME SHE WOULD COUGH. DR FITZGERALD SAID HE WILL PUT THE ORDER IN.
[2020-08-30] MEDS ORDERED: OXYBUTYNIN CHLOR5 MG PO (10:31)
[2020-08-30 12:10] VITALS: BP 120/69
--- NOTE | 2020-08-30 18:23 | NUR ---
NO ACUTE DISTRESS NOTED DURING SHIFT. WILL ENDORSE CARE TO PM SHIFT FOR CONTINUITY OF CARE.
--- NOTE | 2020-08-30 19:11 | NUR ---
RECIEVED PT FROM AM RN. NO SIGNIFICANT CHANGES DURING THE DAY. CALLED INTO PTS ROOM, PT AWARE OF CHANGE OF SHIFT. NO CONCERNS AT THIS TIME. WILL FOLLOW UP WITH ASSESSMENT.
[2020-08-30 21:28] VITALS: BP 113/79
--- NOTE | 2020-08-30 21:51 | NUR ---
PT TOLERATED MEDICATIONS WELL. PT STILL ON 15L NRB O2 SATURATION 95%. PT DENIES SOB AT THIS TIME. PT ENCOURAGED TO LIE PRONE TOLERATED. PT STATED THAT SHE WANTED TO ORGANIZE HER BELONGINGS, I ENCOURAGED PT TO NOT OVER EXERT HERSELF AND TO KEEP NRB MASK ON. PT AGREEABLE. PT HAS CALL LIGHT IN REACH, WILL CONTINUE TO MONITOR.
--- NOTE | 2020-08-31 04:53 | NUR ---
PT STABLE, COMFORTABLE. NO SIGNS OF DISTRESS. CALL LIGHT IN REACH. WILL CONTINUE TO MONITOR.
[2020-08-31 06:19] VITALS: BP 126/68
--- NOTE | 2020-08-31 06:23 | NUR ---
PT RESTED WELL THROUGHOUT THE NIGHT, PT REMAINED STABLE, NO SIGNIFICANT CHANGES. PT REMAINS ON 15L NRB, SATTING WELL. PT DENIES SOB, HAS NO CONCERNS AT THIS TIME. CALL LIGHT IN REACH, WILL CONTINUE TO MONITOR. WILL ENDORSE CARE TO AM RN.
[2020-08-31 07:31] LABS: BASOPHIL % 0.1 % (0-2); RED CELL DISTRIBUTION WIDTH 13.5 % (11.5-14.5)
[2020-08-31 07:43] LABS: ALKALINE PHOSPHATASE 69 U/L (46-116); ALT/SGPT 45 U/L (14-59); AST/SGOT 28 U/L (15-37); BILIRUBIN DIRECT 0.14 mg/dL (0.0-0.2); BILIRUBIN TOTAL 0.3 mg/dL (0.20-1.00); CALCIUM 8.7 mg/dL (8.5-10.1); CARBON DIOXIDE 27.9 mmol/L (21-32); CHLORIDE SERUM 97 mmol/L (98-107); CREATININE SERUM 0.7 mg/dL (0.6-1.0); GFR1 > 60 mL/min; GLUCOSE SERUM 92 mg/dL (74-106); MAGNESIUM 2.1 mg/dL (1.8-2.4); POTASSIUM SERUM 3.8 mmol/L (3.5-5.1); SODIUM SERUM 134 mmol/L (136-145); TOTAL PROTEIN, SERUM 6.4 g/dL (6.4-8.2)
[2020-08-31 07:44] LABS: ALBUMIN 2.2 g/dL (3.4-5.0)
[2020-08-31 09:02] LABS: PLATELET COUNT 460 x10^3mcL (130-400)
[2020-08-31 09:18] VITALS: BP 116/73
[2020-08-31 13:35] VITALS: BP 130/82
[2020-08-31 17:28] VITALS: BP 126/79
--- NOTE | 2020-08-31 19:20 | NUR ---
RECEIVED PT FROM DAY SHIFT RN. PT RESTING IN BED, A&OX4, DENIES CHEST PAIN OR DISCOMFORT. PULSES EQUAL AND NO EDEMA NOTED. LUNGS SOUNDS DIMINISHED AT BASES. PT ON 15L NRB 98%.ABDOMEN SOFT AND ROUND, NON-TENDER NOTED, BOWEL SOUNDS ACTIVE ALL 4 JESSICA. VOIDING FREELY, BEDSIDE COMMODE WITHIN REACH. PT DENIES N/V, OR PAIN WHEN VOIDING. IV SITE INTACT AND PATENT. SKIN WARN AND DRY, NO WOUNDS NOTED .INSTRUCTED TO USE CALL LIGHT AND PHONE WHEN NEEDS ASSISTANCE. BED IN LOWER POSITION. WILL CONTINUE TO MONITOR PT.
[2020-08-31 20:37] VITALS: BP 128/79
--- NOTE | 2020-09-01 01:00 | NUR ---
IN TO CHECK ON PT. PT RESTING IN BED. NO ACUTE CHANGES NOTED AT THIS TIME. PT ON O2 15L WITH NRB 98%, O2SAT 99%. CALL LIGHT WITHIN REACH. WILL CONTINUE TO MONITOR PT.
[2020-09-01 04:24] VITALS: BP 131/78
--- NOTE | 2020-09-01 06:27 | NUR ---
PT RESTING WELL DURING SHIFT. NO ACUTE CHANGES NOTED. PT DENIES CHEST PAIN, DENIES DISCOMFORT AT THIS TIME. PT DENIES SOB AT THIS TIME. PT REMAINS ON O2 15L NRB 98% . ALL QUESTIONS AND CONCERNS ADDRESSED. ALL NEEDS MET AT THIS TIME. SAFETY MEASURES MAINTAINED. CALL LIGHT WITHIN REACH. WILL ENDORSE CONTINITY OF CARE TO DAY SHIFT RN.
[2020-09-01 08:16] VITALS: BP 147/69
[2020-09-01 11:27] VITALS: BP 130/79
--- NOTE | 2020-09-01 13:22 | NUR ---
LATE ENTRY: 0800: AAOX4. NO SOB ; 02 15L/NRM IN USE; ON/OFF DRY COUGH; DIM BS PHIL. PT STATES FEELING BETTER COMPARED TO WHEN ADMISSION. TELE 51; ABD IS SOFT AND NONTENDER; BS+ X4 QUADS. SL ON LAC INTACT. COVID PRECAUTION IN PLACE; FALL AND SAFETY PRECAUTION; WILL CONTINUE TO MONITOR STATUS.
--- NOTE | 2020-09-01 13:28 | NUR ---
SL ON THE LAC LEAKING; RESITED ON THE RFA WITH ANGIO 22 BY CORDELL REIS.
[2020-09-01 17:26] VITALS: BP 112/76
--- NOTE | 2020-09-01 18:18 | NUR ---
NO NEW ACUTE CHANGES IN STATUS; NO SOB; O2 SAT WITH O2 AT 15L/NRM IS 95-98% WILL CONTINUE TO MONITOR STATUS.
--- NOTE | 2020-09-01 20:05 | NUR ---
RECEIVED PT FROM DAY SHIFT RN. A&O X4, PT ON TELE#51, NSR, DENIES CHEST PAIN. PT ON O2 15L NRB 98%, NO SOB NOTED, LUNGS SOUNDS DIMINISHED AT BASES. BOWEL SOUNDS ACTIVE ALL 4 JESSICA, ABDOMEN SOFT, NON-TENDER NOTED. PT DENIES ABDOMINAL PAIN OR DISCOMFORT AT THIS TIME. BEDSIDE COMMODE AT BEDSIDE. VOIDS FREELY WITHOUT DYSURIA. SKIN WARM AND DRY. IV SITE INTACT AND PATENT. INSTRUCTED PT TO USE CALL LIGHT AND PHONE WHEN NEEDS ASSISTANCE. BED IN LOWER POSITION. WILL CONTINUE TO MONITOR PT.
[2020-09-01 20:43] VITALS: BP 126/60
--- NOTE | 2020-09-01 20:50 | NUR ---
PT C/O COUGHING AND REQUESTING FOR COUGH MEDICATION. MEDICATION BENZONATATE 100MG PO PRN GIVEN. WILL REASSESS AND MONITOR PT.
--- NOTE | 2020-09-01 20:50 | NUR ---
PT C/O BACK PAIN AT SCALE OF 7/10, MEDICATION TYLENOL PO 650MG GIVEN. WILL REASSESS AND MONITOR PT.
--- NOTE | 2020-09-02 00:45 | NUR ---
INTO CHECKED ON PT. PT RESTING IN BED. NO DISTRESS NOTED AT THIS TIME. PT RESPIRATION EVEN, ON O2 15L NRB 98%, O2SAT 96% AT THIS TIME. SAFETY MEASURES IN PLACE. WILL CONTINUE TO MONITOR PT.
[2020-09-02 05:35] VITALS: BP 115/68
[2020-09-02 07:20] LABS: CALCIUM 8.7 mg/dL (8.5-10.1); CARBON DIOXIDE 28.9 mmol/L (21-32); CHLORIDE SERUM 100 mmol/L (98-107); CREATININE SERUM 0.8 mg/dL (0.6-1.0); GFR1 > 60 mL/min; GLUCOSE SERUM 109 mg/dL (74-106); MAGNESIUM 2.1 mg/dL (1.8-2.4); POTASSIUM SERUM 3.2 mmol/L (3.5-5.1); SODIUM SERUM 135 mmol/L (136-145)
--- NOTE | 2020-09-02 07:30 | NUR ---
RECEIVED REPORT FROM CENTER LINE CUTTER OPERATOR NURSE. PT IS A/OX4. TELE #51. NSR 84. DENIES CP AT THIS TIME. PT IS ON NRB 15L/98%. O2 SAT 96%. LUNG SOUNDS DIMINISHED BILATERALLY. IV TO RFA, PATENT, SL. PT IS ON DROPLET PRECATIONS. ALL PROTOCOLS IN PLACE. WILL CONTINUE TO MONITOR.
--- NOTE | 2020-09-02 07:35 | NUR ---
0640: PREPARED PT FOR CONVALESCENT PLASMA 250ML TRANSFUSION. VARIFIED ID AND PLASMA WITH SECOND RN KAYLI. PRE-VITAL SIGNS: TEMP=96.9, PULSE=81, RR=18, RV=389/64, O2SAT 99%. PT AWARE OF PROCEDURE OF PLASMA TRANSFUTION. PT CALM AND COOPERATIVE. NO DISTRESS NOTED AT THIS TIME. 0645: STARTING TRANSFUSION, RATE WITH 60ML/PER HOUR FOR 15 MINS. PT TOLERATED WELL, NO DISTRESS NOTED AT THIS TIME. 0700: PT TOLERATED WELL WITH TRANSFUSION. VS: TEMP=97.1, PULSE=77, RR=20, KH=343/71, O2 SAT 98%. TRANSFUSION RATE INCREASE TO 350ML/PER HOURS. CONTINUE TO MONITOR PT. 0735: CONVALESCENT PLASMA TRANSFUSION DONE. PT TOLERATED WELL, NO ADVERSE REACTION NOTED. VS: TEMP=97.0, PULSE=78, GE=881/64, RR=19, M1IRC=00%. SAFETY MEASURES IN PLACE, WILL CONTINUE TO MONITOR PT.
--- NOTE | 2020-09-02 07:40 | NUR ---
REPORT GAVE TO DAY SHIFT RN. PT RESTED WELL DURING SHIFT. NO ACUTE CHANGE NOTED. CONVALESCENT PLASMA TRANSFUSION DONE AT 0735 09/02/20. PT TOLERATED WELL WITH RPOCEDURE. NO ADVERSE REACTION NOTED. PT ON O2 NRB98% 15L, O2 SAT 99%. DENIES CHEST PAIN OR DISCOMFORT. ALL NEEDS MET DUIRNG SHIFT. ALL CARE ENDORSE TO DAY SHIFT RN.
[2020-09-02 08:36] LABS: BASOPHIL % 0 % (0-2); PLATELET COUNT 431 x10^3mcL (130-400); RED CELL DISTRIBUTION WIDTH 14.6 % (11.5-14.5)
[2020-09-02 08:40] VITALS: BP 124/73
--- NOTE | 2020-09-02 09:15 | NUR ---
PT REPORTS PAIN IN HER BACK 03/07. TYLENOL GIVEN PER EMAR. PT ALSO C/O COUGH. TESSALON PRN GIVEN PER EMAR.
--- NOTE | 2020-09-02 11:54 | NUR ---
PT'S POTASSIUM: 3.2. 40MEQ KCL GIVEN PER EMAR.
[2020-09-02 13:06] VITALS: BP 112/79
--- NOTE | 2020-09-02 18:25 | NUR ---
PT IS A/OX4. TELE#51, NSR 79. ST ON ACTIVITY 102. DENIES CP AT THIS TIME. PT IS ON 13L NRB 98%. O2 SAT 98%. PT HAS DRY COUGH AND RECIVED TESSALON PRN PER EMAR. VS STABLE. IV TO RFA, PATENT, SL. PT IS ON DROPLET PRECATIONS. ALL PROTOCOLS IN PLACE WILL ENDORSE CARE TO ONCOMING NURSE.
--- NOTE | 2020-09-02 19:10 | NUR ---
RECEIVED PT FROM DAY SHIFT RN. A&O X4, DENIES CHEST PAIN OR DISCOMFORT, DENIES SOB, CURRENTLY ON O2 13L NRB 98%, WITH O2SAT 99%. IV SITE INTACT AND PATENT. INSTRUCTED PT TO CALL FOR ANY ASSISTANCE OR ACUTE CHANGES IN CONDITIONS. CALL LIGHT WITHIN REACH. WILL CONTINUE TO MONITOR PT.
--- NOTE | 2020-09-02 21:00 | NUR ---
PT C/O COUGHING AND BACK PAIN ( 04/06), REQUESTED FOR MEDICATIONS. NORCO 5/325MG PO GIVEN FOR PAIN, TESSALON PERLES 100MG PO FOR COUGHING GIVEN. WILL REASSESS ADN MONITOR PT.
[2020-09-02 21:24] VITALS: BP 126/72
--- NOTE | 2020-09-02 22:00 | NUR ---
RECHECKED ON PT. PT STATED FEEL MUCH BETTER ON HER BACK, AND LESS COUGHING. SAFETY MEASURES ARE IN PLACE, WILL CONTINUE TO MONITOR PT.
--- NOTE | 2020-09-03 01:03 | NUR ---
INTO CHECKED ON PT. PT RESTING IN BED. PT ON O2 13L NRB 98%, O2SAT 97%. NO DISTRESS NOTED AT THIS TIME. CALL LIGHT WITHIN REACH. BED IN LOWER POSITION. WILL CONTINUE TO MONITOR PT.
[2020-09-03 05:39] VITALS: BP 130/81
--- NOTE | 2020-09-03 07:03 | NUR ---
PT RESTED WELL DURING SHIFT. NO ACUTE CHANGES NOTED. PT DENIES CHEST PAIN OR DISCOMFORT, DENEIS N/V. PT ON O2 13L NRB 98% WITH O2SAT 99%. NO SOB OR DISTRESS NOTED. SAFETY MEASURES ARE IN PLACE, CALL LIGHT WITHIN REACH. WILL ENDORSE CARE TO ONCOMING RN.
--- NOTE | 2020-09-03 07:20 | NUR ---
RECEIVED BEDSIDE REPORT FROM NIGHT RN. PT IN BED RESTING WITH EYES OPEN. PT AOX4 ABLE TO MAKE NEEDS KNOWN. PT DEINES CHEST PAIN AND SOB. RR EVEN AND UNLABORED ON 13L NRB. HOB ELEVATED. BED RAILS UPX2. PT ON TELE#51. ALL NEEDS MEET AT THIS TIME. CALL LIGHT WITHIN REACH. WILL CONTINUE TO MONITOR.
[2020-09-03 07:40] VITALS: BP 129/77
[2020-09-03 07:47] LABS: CALCIUM 8.7 mg/dL (8.5-10.1); CARBON DIOXIDE 32.4 mmol/L (21-32); CHLORIDE SERUM 101 mmol/L (98-107); CREATININE SERUM 0.7 mg/dL (0.6-1.0); GFR1 > 60 mL/min; GLUCOSE SERUM 85 mg/dL (74-106); MAGNESIUM 2.2 mg/dL (1.8-2.4); POTASSIUM SERUM 4.3 mmol/L (3.5-5.1); SODIUM SERUM 138 mmol/L (136-145)
[2020-09-03 07:53] LABS: BASOPHIL % 0.1 % (0-2); RED CELL DISTRIBUTION WIDTH 13.9 % (11.5-14.5)
[2020-09-03 08:22] LABS: PLATELET COUNT 462 x10^3mcL (130-400)
--- NOTE | 2020-09-03 09:15 | NUR ---
PT IN BED RESTING. PT CO UPPER LEFT ABD PAIN BELOW RIBS. MD MADE AWARE. PT MEDICATED FOR PAIN. CHEST XRAY PREFORMED. ALL OTHER NEEDS MEET AT THIS TIME. CALL LIGHT WITHIN REACH. BED LOCKED IN LOWEST POSITION. WILL CONTINUE TO MONITOR.
[2020-09-03 12:25] VITALS: BP 114/70
--- NOTE | 2020-09-03 13:00 | NUR ---
PT CO OF 07/07 ABD PAIN. MADE AWARE. PT MEDICATED PER EMAR FOR PAIN. WILL CONTINUE TO MONITOR.
--- NOTE | 2020-09-03 15:16 | NUR ---
RECEIVED A CALLBACK FROM DR. SALINAS AND WAS MADE AWARE ON PATIENT'S CHEST X-RAY RESULT AND PATIENT IS STILL COMPLAINING OF LUQ ABDOMINAL PAIN AFTER NORCO WAS GIVEN AT 1204H, RECEIVED TELEPHONE ORDER FOR TRAMADOL 50 MG EVERY 6 HOURS NEEDED FOR PAIN. ORDER WAS CARRIED OUT AND PRIMARY NURSE SAUD MADE AWARE OF THE ABOVE.
--- NOTE | 2020-09-03 16:00 | NUR ---
PT CONTINUES TO CO ABD PAIN. PAGED TO BE MADE AWARE
[2020-09-03 17:20] VITALS: BP 117/92
--- NOTE | 2020-09-03 20:00 | NUR ---
PT FAMILY (DAUGHTER) UPDATED ON PATIENT CARE ABD PAIN MANGEMENT.
[2020-09-03 21:22] VITALS: BP 111/78
--- NOTE | 2020-09-03 23:50 | NUR ---
PT CO ABD PAIN. PT MEDICATED PER EMAR. PT APPEARS TO BE PAIN FREE WITH EYES CLOSED. WILL CONTINUE TO MONITOR.
--- NOTE | 2020-09-04 01:36 | NUR ---
PT HR SUSTAINING ABOVE 15O. MD KAUR AWARE. PT MEDICATED PER EMAR. WILL CONTINUE TO MONITOR.
--- NOTE | 2020-09-04 05:19 | NUR ---
LATE ENTRY: ASSUMED PLAN OF CARE AT 0310, CHECKED ON PT, PULSE OX NOT READING PROPERLY D/T COLD EXTREMITIES. WARM BLANKET PROVIDED WELL WARM COMPRESS TO HANDS. SPOT CHECK AT 90% WITH PT ON 13L O2 VIA NRB. HR 122. 0423: NOTICED ON TELE MONITOR DROP IN HR TO 33, ASSESSED PT, NON RESPONSIVE TO VERBAL STIMULI, NON RESPONSIVE TO STERNAL RUB, PULSE CHECKED, NO PULSE. CALLED CODE BLUE AND STARTED CHEST COMPRESSIONS. O447: CODE ENDED UNSUCCESSFUL. TIME OF AT 0447. 0500: LEFT MESSAGE FOR DR. RAYMOND'S ON HIS ANSWERING SERVICE. 0515: CHARGE NURSE BLAINE SPOKE WITH DAUGHTER TO INFORM HER OF PT .
--- NOTE | 2020-09-04 05:29 | NUR ---
DR. GOOD, WHO IS ONCALL FOR PULMONARY GROUP, CALLED BACK AND MADE AWARE OF PT .
--- NOTE | 2020-09-04 06:30 | NUR ---
RIGGING WORKER NOTIFIED AWAITING CALL BACK.
--- NOTE | 2020-09-04 06:36 | NUR ---
PT IS NOT A CANIDIATE FOR [employer]GAN DONATION.
--- NOTE | 2020-09-04 07:31 | NUR ---
BODY BAGGED AT THIS TIME. ALL BELONGINGS KEPT WITH PT ON BED. SECURITY CALLED, AWAITING STRATEGIC PLANNING DIRECTOR AT THIS TIME.
== END 2020-09-04 04:47 | disposition expired | DRG 720 ==
LOC: ED 13:38 → DU 16:01
PROVIDERS: Hospitalist; Internal Medicine Infectious Disease; Internal Medicine Pulmonary Disease; Student in an Organized Health Care Education/Training Program; ADMIT Internal Medicine; ATTEND Internal Medicine
PROC: XW033E5 Introduction of Remdesivir Anti-infective into Peripheral Vein, Percutaneous Approach, New Technology Group 5 (ICD-10-PCS; principal; 2020-08-23)
PROC: XW13325 Transfusion of Convalescent Plasma (Nonautologous) into Peripheral Vein, Percutaneous Approach, New Technology Group 5 (ICD-10-PCS; 2020-08-23)
DX: A41.89 Other specified sepsis (principal); U07.1 COVID-19; J96.01 Acute respiratory failure with hypoxia; J12.89 Other viral pneumonia; M32.9 Systemic lupus erythematosus, unspecified; E03.9 Hypothyroidism, unspecified; M54.9 Dorsalgia, unspecified; G89.29 Other chronic pain; Z88.1 Allergy status to other antibiotic agents; Z88.8 Allergy status to other drugs, medicaments and biological substances
CPT/HCPCS: 36600; 82962; 83880; 85378; 94150; G0378; J0456; J0696; J1100; J1650; J2270; J2405; J3490; J3535; J7030; J7040; J7050; J7060; U0003